=== PATIENT | female | born 1950 | race Caucasian/White ===

== ENCOUNTER 2021-03-10 20:28 | Emergency (ER) | payer SELFPAY ==
[~2021-03-10] VITALS: Ht 152.4 cm; Wt 68.3 kg
[2021-03-10 20:33] VITALS: BP 189/84
== END 2021-03-10 21:23 | disposition left against medical advice (07) ==
LOC: ER 20:28
DX: R10.9 Unspecified abdominal pain (principal); Z53.21 Procedure and treatment not carried out due to patient leaving prior to being seen by health care provider

== ENCOUNTER 2024-12-20 13:29 | Outpatient (CLI) | payer MEDICARE | END 2024-12-20 23:59 | disposition home or self-care (01) | LOC: RAD 13:29 | PROVIDERS: ATTEND Urology | DX: N20.0 Calculus of kidney (principal); K57.30 Diverticulosis of large intestine without perforation or abscess without bleeding; Z90.49 Acquired absence of other specified parts of digestive tract | CPT/HCPCS: 74176 ==